=== PATIENT | female | born 1935 | race Caucasian/White ===

== ENCOUNTER 2019-04-11 06:37 | Observation (INO) | payer MEDICARE ==
[2019-04-11] MEDS ORDERED: ONDANSETRON 4 MG/2 ML VIAL IVP STA (07:14)
[2019-04-11] MEDS ORDERED: MORPHINE SULFATE 4 MG/ML SYRINGE IV STA (07:14)
--- NOTE | 2019-04-11 07:51 | ED ---
Abdominal Pain HPI - General Chief Complaint: Abdominal Pain Stated Complaint: abd pain Time Seen by Provider: 04/11/19 07:00 Source: patient Mode of arrival: ambulatory Limitations: no limitations - History of Present Illness Initial Comments: The patient is an 83-year-old female past medical history of hypertension and TIA who presents to the emergency room with reported abdominal pain. States it has been present since Wednesday morning. It is described as a epigastric pain which radiates straight through to her back. It has been waxing and waning. She took Tylenol at home with only mild improvement in her symptoms. She has associated nausea with dry heaving. Denies any fevers or chills. No history of similar. Denies ripping or tearing sensation. No unilateral numbness or weakness into her lower extremities. Denies any dysuria, hematuria or difficult voiding. Denies any diarrhea, constipation, melanotic stools or hematochezia. Last bowel movement was last night. Denies any abnormal vaginal bleeding or discharge. The patient arrives and is extremely hypertensive. States that she has taken her blood pressure medications and has been able to hold them down. Denies any chest pain or shortness of breath. There are no other alleviating, precipitating or modifying factors - Related Data Home Medications Medication Instructions Recorded Confirmed Atorvastatin [Lipitor] 40 mg PO DAILY 04/11/19 04/11/19 Clopidogrel [Plavix] 75 mg PO DAILY 04/11/19 04/11/19 Omeprazole [PriLOSEC] 20 mg PO DAILY 04/11/19 04/11/19 Previous Rx's Medication Instructions Recorded Hydrocodone/Acetaminophen [[place] 1 tab PO Q6HR PRN 3 Days #12 tab 04/12/19 5-325] Allergies Allergy/AdvReac Type Severity Reaction Status Date / Time No Known Allergies Allergy Verified 04/11/19 09:20 Review of Systems ROS Statement: Those systems with pertinent positive or pertinent negative responses have been documented in the HPI. ROS Other: All systems not noted in ROS Statement are negative. Past Medical History Past Medical History: CVA/TIA, Hyperlipidemia, Hypertension History of Any Multi-Drug Resistant Organisms: None Reported Past Surgical History: Hernia Repair Past Psychological History: No Psychological Hx Reported Smoking Status: Never smoker Past Alcohol Use History: None Reported Past Drug Use History: None Reported - Past Family History Father Family Medical History: No Reported History Additional Family Medical History / Comment(s): Father was healthy Mother Family Medical History: No Reported History Additional Family Medical History / Comment(s): Mother was healthy General Exam Limitations: no limitations General appearance: alert, in no apparent distress Head exam: Present: atraumatic, normocephalic, normal inspection Eye exam: Present: normal appearance, PERRL, EOMI. Absent: scleral icterus, conjunctival injection, periorbital swelling ENT exam: Present: normal exam, mucous membranes moist Neck exam: Present: normal inspection. Absent: tenderness, meningismus, lymphadenopathy Respiratory exam: Present: normal lung sounds bilaterally. Absent: respiratory distress, wheezes, rales, rhonchi, stridor Cardiovascular Exam: Present: regular rate, normal rhythm, normal heart sounds. Absent: systolic murmur, diastolic murmur, rubs, gallop, clicks GI/Abdominal exam: Present: soft, tenderness (epigastric), normal bowel sounds. Absent: distended, guarding, rebound, rigid Extremities exam: Present: normal inspection, full ROM, normal capillary refill. Absent: tenderness, pedal edema, joint swelling, calf tenderness Back exam: Present: normal inspection Neurological exam: Present: alert, oriented X3, CN II-XII intact Psychiatric exam: Present: normal affect, normal mood Skin exam: Present: warm, dry, intact, normal color. Absent: rash Course Vital Signs 04/11/19 04/11/19 04/11/19 07:00 07:30 08:30 Temperature 97.8 F Pulse Rate 80 84 89 Respiratory 18 20 16 Rate Blood Pressure 192/98 195/106 204/104 O2 Sat by Pulse 98 93 L 96 Oximetry 04/11/19 04/11/19 09:30 10:41 Temperature Pulse Rate 92 87 Respiratory 18 18 Rate Blood Pressure 199/109 176/104 O2 Sat by Pulse 94 L 99 Oximetry Medical Decision Making - Medical Decision Making Upon arrival the patient was placed into room 8. A thorough history and physical exam was performed. Patient does have 2+ pulses in all extremities. I did perform a bedside ultrasound which demonstrates only a small portion of aorta which measures 1.1 cm in diameter. Remainder of aorta is obscured by bowel gas. Peripheral IV is established. The patient's given 4 mg of morphine and 4 mg of Zofran. I did recommend completing laboratory studies. CT angiography of the patient's abdomen and pelvis was ordered. CBC shows a white blood for count of 17.5. Coags are normal. CMP shows a creatinine of 0.5. Glucose 130. Urinalysis shows 1+ ketones, 1+ glucose, small blood and [address] of the patient's abdomen and pelvis demonstrates acute cholecystitis with pericholecystic fluid, gallbladder wall edema and gb wall thickening. Cholelithiasis is also seen. Gallbladder ultrasound was then performed which demonstrates cholelithiasis with wall thickening and probable pericholecystic fluid. Common bile duct is 0.5. I called and discussed case with Dr. Pike. I also called and discussed the case with Dr. Mishra who accepted admission for the patient. She was made nothing by mouth. Antinausea and pain meds were ordered. The patient was transported in the floor in stable condition - Lab Data Result diagrams: 04/11/19 07:24 04/11/19 07:24 Lab Results 04/11/19 04/11/19 04/11/19 Range/Units 07:24 07:24 07:24 WBC 9.2 (3.8-10.6) k/uL RBC 5.54 H (3.80-5.40) m/uL Hgb 17.5 H (11.4-16.0) gm/dL Hct 51.9 H (34.0-46.0) % MCV 93.6 (80.0-100.0) fL MCH 31.6 (25.0-35.0) pg MCHC 33.8 (31.0-37.0) g/dL RDW 12.4 (11.5-15.5) % Plt Count 217 (150-450) k/uL Neutrophils % 83 % Lymphocytes % 9 % Monocytes % 6 % Eosinophils % 1 % Basophils % 0 % Neutrophils # 7.6 (1.3-7.7) k/uL Lymphocytes # 0.9 L (1.0-4.8) k/uL Monocytes # 0.5 (0-1.0) k/uL Eosinophils # 0.1 (0-0.7) k/uL Basophils # 0.0 (0-0.2) k/uL PT (9.0-12.0) sec INR (<1.2) APTT (22.0-30.0) sec Sodium 139 (137-145) mmol/L Potassium 4.0 (3.5-5.1) mmol/L Chloride 103 (98-107) mmol/L Carbon Dioxide 25 (22-30) mmol/L Anion Gap 11 mmol/L BUN 16 (7-17) mg/dL Creatinine 0.51 L (0.52-1.04) mg/dL Est GFR (CKD-EPI)AfAm >90 (>60 ml/min/1.73 sqM) Est GFR (CKD-EPI)NonAf >90 (>60 ml/min/1.73 sqM) Glucose 130 H (74-99) mg/dL Plasma Lactic Acid Jose 1.4 (0.7-2.0) mmol/L Calcium 10.3 H (8.4-10.2) mg/dL Total Bilirubin 1.2 (0.2-1.3) mg/dL AST 26 (14-36) U/L ALT 24 (9-52) U/L Alkaline Phosphatase 88 (38-126) U/L Total Protein 7.6 (6.3-8.2) g/dL Albumin 4.8 (3.5-5.0) g/dL Lipase 62 (23-300) U/L Urine Color Urine Appearance (Clear) Urine pH (5.0-8.0) Ur Specific [place] (1.001-1.035) Urine Protein (Negative) Urine Glucose (UA) (Negative) Urine Ketones (Negative) Urine Blood (Negative) Urine Nitrite (Negative) Urine Bilirubin (Negative) Urine Urobilinogen (<2.0) mg/dL Ur Leukocyte Esterase (Negative) Urine RBC (0-5) /hpf Urine WBC (0-5) /hpf Ur Squamous Epith Cells (0-4) /hpf 04/11/19 04/11/19 Range/Units 07:24 09:13 WBC (3.8-10.6) k/uL RBC (3.80-5.40) m/uL Hgb (11.4-16.0) gm/dL Hct (34.0-46.0) % MCV (80.0-100.0) fL MCH (25.0-35.0) pg MCHC (31.0-37.0) g/dL RDW (11.5-15.5) % Plt Count (150-450) k/uL Neutrophils % % Lymphocytes % % Monocytes % % Eosinophils % % Basophils % % Neutrophils # (1.3-7.7) k/uL Lymphocytes # (1.0-4.8) k/uL Monocytes # (0-1.0) k/uL Eosinophils # (0-0.7) k/uL Basophils # (0-0.2) k/uL PT 10.8 (9.0-12.0) sec INR 1.0 (<1.2) APTT 23.9 (22.0-30.0) sec Sodium (137-145) mmol/L Potassium (3.5-5.1) mmol/L Chloride (98-107) mmol/L Carbon Dioxide (22-30) mmol/L Anion Gap mmol/L BUN (7-17) mg/dL Creatinine (0.52-1.04) mg/dL Est GFR (CKD-EPI)AfAm (>60 ml/min/1.73 sqM) Est GFR (CKD-EPI)NonAf (>60 ml/min/1.73 sqM) Glucose (74-99) mg/dL Plasma Lactic Acid Jose (0.7-2.0) mmol/L Calcium (8.4-10.2) mg/dL Total Bilirubin (0.2-1.3) mg/dL AST (14-36) U/L ALT (9-52) U/L Alkaline Phosphatase (38-126) U/L Total Protein (6.3-8.2) g/dL Albumin (3.5-5.0) g/dL Lipase (23-300) U/L Urine Color Light Yellow Urine Appearance Clear (Clear) Urine pH 7.0 (5.0-8.0) Ur Specific [place] 1.036 H (1.001-1.035) Urine Protein Trace H (Negative) Urine Glucose (UA) 1+ H (Negative) Urine Ketones 1+ H (Negative) Urine Blood Small H (Negative) Urine Nitrite Negative (Negative) Urine Bilirubin Negative (Negative) Urine Urobilinogen <2.0 (<2.0) mg/dL Ur Leukocyte Esterase Negative (Negative) Urine RBC 21 H (0-5) /hpf Urine WBC 1 (0-5) /hpf Ur Squamous Epith Cells <1 (0-4) /hpf - EKG Data EKG Comments: EKG demonstrates normal sinus rhythm with a ventricular rate 77. ID interval 132. QRS 66. QTC of 450. No acute ST segment elevations or depressions concerning for ischemic changes Disposition Clinical Impression: Abdominal pain, Acute cholecystitis Disposition: ADMITTED IP TO THIS HOSP Condition: Stable Is patient prescribed a controlled substance at d/c from ED?: No Decision to Admit Reason: Admit from EC Decision Date: 04/11/19 Decision Time: 09:35
[2019-04-11 07:55] LABS: Partial Thromboplastin Time 23.9 sec (22.0-30.0); Prothrombin Time 10.8 sec (9.0-12.0)
[2019-04-11 07:56] LABS: ALT 24 U/L (9-52); AST 26 U/L (14-36); African American GFR (CKD) >90 (>60 ml/min/1.73 sqM); Albumin 4.8 g/dL (3.5-5.0); Alkaline Phosphatase 88 U/L (38-126); Anion Gap 11 mmol/L; Blood Urea Nitrogen 16 mg/dL (7-17); Calcium 10.3 mg/dL (8.4-10.2); Carbon Dioxide 25 mmol/L (22-30); Chloride 103 mmol/L (98-107); Glucose 130 mg/dL (74-99); Non-African American GFR(CKD) >90 (>60 ml/min/1.73 sqM); Sodium 139 mmol/L (137-145); Total Bilirubin 1.2 mg/dL (0.2-1.3); Total Protein 7.6 g/dL (6.3-8.2)
[2019-04-11 07:59] LABS: Basophils % (A) 0 %; Eosinophils # (A) 0.1 k/uL (0-0.7); Eosinophils % (A) 1 %; HCT 51.9 % (34.0-46.0); HGB 17.5 gm/dL (11.4-16.0); Lymphocytes # (A) 0.9 k/uL (1.0-4.8); Lymphocytes % (A) 9 %; MCH 31.6 pg (25.0-35.0); MCHC 33.8 g/dL (31.0-37.0); MCV 93.6 fL (80.0-100.0); Mean Platelet Volume 8.9; Monocytes # (A) 0.5 k/uL (0-1.0); Monocytes % (A) 6 %; Neutrophils # (A) 7.6 k/uL (1.3-7.7); Neutrophils % (A) 83 %; Platelet Count 217 k/uL (150-450); RBC 5.54 m/uL (3.80-5.40); RDW 12.4 % (11.5-15.5); WBC 9.2 k/uL (3.8-10.6)
--- NOTE | 2019-04-11 08:45 | CT ---
EXAMINATION TYPE: CT angio abdomen pelvis DATE OF EXAM: 04/11/2019 HISTORY: Rt flank pain, severe back pain since Wednesday CT DLP: 730.5mGycm Automated Exposure Control for Dose Reduction was Utilized. CONTRAST: CT scan of the abdomen and pelvis is performed without and with IV Contrast, patient injected with 10 0 mL of Isovue 370. COMPARISON: None FINDINGS: LUNG BASES: Increased anterior posterior diameter of the chest that may relate to emphysema or kyphos is. Minimal bibasilar atelectasis. Coronary arteries are not entirely visualized. At least mild coron sarbjit artery calcifications. LIVER/GB: There is gallbladder wall edema and gallbladder wall thickening with pericholecystic fluid. Cholelithiasis is also seen. Common bile duct measures 7 mm. Angiographic phase of the liver limited evaluation. There is hyperemia around the gallbladder fossa s econdary to the findings of acute cholecystitis. PANCREAS: No significant abnormality is seen. SPLEEN: No significant abnormality is seen. ADRENALS: No significant abnormality is seen. KIDNEYS: No significant abnormality is seen. BOWEL: Small hiatal hernia. Sigmoid diverticulosis without evidence of acute diverticulitis. Patulous fat filled inguinal canals. No dilated large or small bowel. LYMPH NODES: No greater than 1cm abdominal or pelvic lymph nodes are appreciated. OSSEOUS STRUCTURES: Diffuse osseous demineralization. Grade 1 anterolisthesis of L4 on L5 likely due to hypertrophic facet change. Moderate multilevel degenerative disc disease of the spine with mild le voscoliosis of the lumbar spine. VASCULATURE: Precontrast imaging demonstrates no evidence of intramural hematoma. Post contrast imagi ng demonstrates no evidence of aortic dissection in the abdominal aorta or its branches. No aneurysma l dilatation. Advanced calcific atheromatous changes seen of the abdominal aorta. Mild radial also na rrowing on the left. There is some ostial narrowing at the celiac access and superior mesenteric axis without appreciable hemodynamically significant stenosis. There is opacification of the visualized p roximal portions of the SMA and SAMRA as well as celiac axis and its branches. Renal arteries are paten t. IMPRESSION: 1. CT findings of acute cholecystitis. 2. No evidence of abdominal aortic dissection or aneurysm. Advanced atherosclerosis.
[2019-04-11] MEDS ORDERED: cefTRIAXone IN SWFI 1,000 MG/10 ML SYRINGE IVP STA (09:07)
[2019-04-11 09:44] LABS: Appearance,Urine Clear (Clear); Bilirubin,Urine Negative (Negative); Blood,Urine Small (Negative); Color,Urine Light Yellow; Glucose,Urine (UA) 1+ (Negative); Ketones,Urine 1+ (Negative); Leukocyte Esterase,Urine Negative (Negative); Nitrite,Urine Negative (Negative); Protein,Urine Trace (Negative); RBC,Urine 21 /hpf (0-5); Specific Gravity,Urine 1.036 (1.001-1.035); Squamous Epithelial Cell,Urine <1 /hpf (0-4); Urobilinogen,Urine <2.0 mg/dL (<2.0); WBC,Urine 1 /hpf (0-5)
[2019-04-11] MEDS ORDERED: NALOXONE 0.4 MG/ML 1 ML VIAL IV PRN (09:50)
[2019-04-11] MEDS ORDERED: MORPHINE SULFATE 4 MG/ML SYRINGE IV PRN (09:52)
[2019-04-11] MEDS ORDERED: ONDANSETRON 4 MG/2 ML VIAL IVP PRN (09:52)
[2019-04-11] MEDS: SODIUM CHLORIDE 0.9% 1,000 ML IV SCH (10:00)
--- NOTE | 2019-04-11 10:02 | US ---
EXAMINATION TYPE: US gallbladder DATE OF EXAM: 04/11/2019 COMPARISON: NONE CLINICAL HISTORY: abdominal pain. Abdominal pain, nausea and vomiting EXAM MEASUREMENTS: Liver Length: 13.6 cm Gallbladder Wall: 0.5 cm CBD: 0.5 cm Right Kidney: 9.5 x 4.6 x 3.8 cm Pancreas: Obscured by bowel gas Liver: best visualized intercostally and therefore limited in assessment. No obvious mass by ultras ound. Gallbladder: multiple stones, thickened GB wall, possible small amount of pericholecystic fluid Evidence for sonographic Logan's sign: yes CBD: appears wnl Right Kidney: minimally dilated collecting system IMPRESSION: 1. Gallbladder is grossly abnormal. Cholelithiasis with wall thickening and probable pericholecystic fluid correlate for cholecystitis. 2. There is mild right hydronephrosis.
--- NOTE | 2019-04-11 10:31 | P.GSHP ---
History of Present Illness H&P Date: 04/11/19 CHIEF COMPLAINT: Abdominal pain HISTORY OF PRESENT ILLNESS: 83-year-old female who presented to the emergency room with a chief complaint of abdominal pain. Patient reports the pain is in the right upper quadrant and radiates to her back. She states this pain has been present for approximately 2 days. She reports nausea. Denies diarrhea or frustration. Denies fever or chills. PAST MEDICAL HISTORY: See list. PAST SURGICAL HISTORY: See list. SOCIAL HISTORY: No illicit drug use. REVIEW OF SYSTEMS: CONSTITUTIONAL: Denies fever or chills. HEENT: Denies blurred vision, vision changes, or eye pain. Denies hemoptysis CARDIOVASCULAR: Denies chest pain or pressure. RESPIRATORY: No shortness of breath. GASTROINTESTINAL: Refer to [facility] for pertinent findings HEMATOLOGIC: Denies bleeding disorders. GENITOURINARY: Denies any blood in urine. SKIN: Denies pruitis. Denies rash. PHYSICAL EXAM: VITAL SIGNS: Reviewed. GENERAL: Well-developed in no acute distress. HEENT: No sclera icterus. Extraocular movements grossly intact. Moist buccal mucosa. Head is atraumatic, normocephalic. ABDOMEN: Soft. Nondistended. Tenderness upon palpation of right upper quadrant. No peritoneal signs. NEUROLOGIC: Alert and oriented. Cranial nerves II through XII grossly intact. LABORATORY DATA: WAC 9.2. Hemoglobin 17.5. Platelet count 217. Lactic acid 1.4. Bilirubin 1.2. AST 26. ALT 24. Lipase 62. IMAGING: Abdominal ultrasound: Gallbladder is grossly abnormal. Cholelithiasis with wall thickening and probable pericholecystic fluid. Correlate for cholecystitis. Mild right hydronephrosis. ASSESSMENT: 1. Abdominal pain 2. Cholelithiasis 3. Acute cholecystitis PLAN: Nothing by mouth. Continue IV fluids. Patient to undergo laparoscopic cholecystectomy today with Dr. Mishra. Nurse practitioner note has been reviewed by physician. Signing provider agrees with the documented findings, assessment, and plan of care. Past Medical History Past Medical History: CVA/TIA, Hyperlipidemia, Hypertension History of Any Multi-Drug Resistant Organisms: None Reported Past Surgical History: Hernia Repair Past Psychological History: No Psychological Hx Reported Smoking Status: Never smoker Past Alcohol Use History: None Reported Past Drug Use History: None Reported Medications and Allergies Home Medications Medication Instructions Recorded Confirmed Type Atorvastatin [Lipitor] 40 mg PO DAILY 04/11/19 04/11/19 History Clopidogrel [Plavix] 75 mg PO DAILY 04/11/19 04/11/19 History Omeprazole [PriLOSEC] 20 mg PO DAILY 04/11/19 04/11/19 History Allergies Allergy/AdvReac Type Severity Reaction Status Date / Time No Known Allergies Allergy Verified 04/11/19 09:20 Surgical - Exam Vital Signs Temp Pulse Resp BP Pulse Ox 97.8 F 80 18 192/98 98 04/11/19 07:00 04/11/19 07:00 04/11/19 07:00 04/11/19 07:00 04/11/19 07:00 Results - Labs 04/11/19 07:24 04/11/19 07:24 Abnormal Lab Results - Last 24 Hours (Table) 04/11/19 04/11/19 04/11/19 Range/Units 07:24 07:24 09:13 RBC 5.54 H (3.80-5.40) m/uL Hgb 17.5 H (11.4-16.0) gm/dL Hct 51.9 H (34.0-46.0) % Lymphocytes # 0.9 L (1.0-4.8) k/uL Creatinine 0.51 L (0.52-1.04) mg/dL Glucose 130 H (74-99) mg/dL Calcium 10.3 H (8.4-10.2) mg/dL Ur Specific [place] 1.036 H (1.001-1.035) Urine Protein Trace H (Negative) Urine Glucose (UA) 1+ H (Negative) Urine Ketones 1+ H (Negative) Urine Blood Small H (Negative) Urine RBC 21 H (0-5) /hpf Diabetes panel 04/11/19 Range/Units 07:24 Sodium 139 (137-145) mmol/L Potassium 4.0 (3.5-5.1) mmol/L Chloride 103 (98-107) mmol/L Carbon Dioxide 25 (22-30) mmol/L BUN 16 (7-17) mg/dL Creatinine 0.51 L (0.52-1.04) mg/dL Glucose 130 H (74-99) mg/dL Calcium 10.3 H (8.4-10.2) mg/dL AST 26 (14-36) U/L ALT 24 (9-52) U/L Alkaline Phosphatase 88 (38-126) U/L Total Protein 7.6 (6.3-8.2) g/dL Albumin 4.8 (3.5-5.0) g/dL Calcium panel 04/11/19 Range/Units 07:24 Calcium 10.3 H (8.4-10.2) mg/dL Albumin 4.8 (3.5-5.0) g/dL Pituitary panel 04/11/19 Range/Units 07:24 Sodium 139 (137-145) mmol/L Potassium 4.0 (3.5-5.1) mmol/L Chloride 103 (98-107) mmol/L Carbon Dioxide 25 (22-30) mmol/L BUN 16 (7-17) mg/dL Creatinine 0.51 L (0.52-1.04) mg/dL Glucose 130 H (74-99) mg/dL Calcium 10.3 H (8.4-10.2) mg/dL Adrenal panel 04/11/19 Range/Units 07:24 Sodium 139 (137-145) mmol/L Potassium 4.0 (3.5-5.1) mmol/L Chloride 103 (98-107) mmol/L Carbon Dioxide 25 (22-30) mmol/L BUN 16 (7-17) mg/dL Creatinine 0.51 L (0.52-1.04) mg/dL Glucose 130 H (74-99) mg/dL Calcium 10.3 H (8.4-10.2) mg/dL Total Bilirubin 1.2 (0.2-1.3) mg/dL AST 26 (14-36) U/L ALT 24 (9-52) U/L Alkaline Phosphatase 88 (38-126) U/L Total Protein 7.6 (6.3-8.2) g/dL Albumin 4.8 (3.5-5.0) g/dL
[2019-04-11] MEDS ORDERED: PNEUMOCOCCAL VACC-PNEUMOVAX 23 25 MCG/0.5 ML VIAL IM ONE (11:00)
[2019-04-11] MEDS ORDERED: IV FLUID CONTINUATION 1,000 ML IV ONE (11:03)
[2019-04-11] MEDS ORDERED: PHENYLEPHRINE-0.9% NACL SYG 1 MG/10 ML SYRINGE ONE (12:00)
[2019-04-11] MEDS ORDERED: SUCCINYLCHOLINE CHLORIDE 100 MG/5 ML SYR IV ONE (12:00)
[2019-04-11] MEDS ORDERED: fentaNYL (PF) 50 MCG/ML 2 ML AMP ONE (12:00)
[2019-04-11] MEDS ORDERED: PROPOFOL 10 MG/ML 20 ML VIAL IV ONE (12:00)
[2019-04-11] MEDS ORDERED: ceFAZolin 1,000 MG VIAL IVPB ONE (12:15)
[2019-04-11] MEDS ORDERED: BUPIVACAIN-EPI 0.25%-1:200,000 30 ML VIAL SQ ONE (12:23)
[2019-04-11] MEDS ORDERED: HYDROmorphone 1 MG/ML 1 ML SYRINGE IM PRN (12:56)
--- NOTE | 2019-04-11 12:56 | P.OP ---
Date of Procedure: 04/11/19 Preoperative Diagnosis: Acute cholecystitis Postoperative Diagnosis: Acute cholecystitis with patchy necrosis Procedure(s) Performed: Laparoscopic cholecystectomy Anesthesia: JENNIFER Surgeon: Arnol Mishra Estimated Blood Loss (ml): 10 Pathology: other (All bladder all bladder) Description of Procedure: The patient was placed on the operating table. The patient received a general endotracheal tube anesthesia. The patients abdomen was prepped and draped in the usual sterile fashion. Through an infraumbilical stab incision, the fascia of the anterior abdominal wall was grasped with a pair of Kochers and then the Veress needle was placed in the peritoneal cavity. Position of the Veress needle was confirmed with positive drop test. The abdomen was then insufflated. After adequate insufflation, the 10 mm trocar was placed in the peritoneal cavity. Following this the laparoscope was placed in the perit ward cavity. The patient was placed in the head-up, right side up position and then a 5 mm trocar was placed in the right lateral and right subcostal position under direct visualization. A 8 mm trocar was placed in the epigastric position. The gallbladder was grasped in the fundus and infundibulum. Traction on the gallbladder was placed in the lateral and the cephalad positions. The triangle of Calot was visualized.. The cystic duct was bluntly dissected until the union of the cystic duct and common bile duct was seen. A critical view of safety was achieved. The cystic duct was then divided and sealed with the Harmonic scissors. A PDS Endoloop was then placed throughout the cystic duct stump. The cystic artery divided and sealed with the Harmonic scissors. The gallbladder was then removed from the liver bed using Harmonic scissors. The gallbladder was then extracted through the epigastric port site. Operative field was checked for any bleeding spots and Harmonic scissors was used to coagulate the liver bed. The abdomen was irrigated. The trocars were removed. The skin was closed using interrupted 3-0 Vicryl suture. Dermabond dressing were applied. The patient tolerated the procedure well.
[2019-04-11] MEDS ORDERED: METOPROLOL TARTRATE 5 MG/5 ML VIAL IVP ONE ×2 (13:35→14:57)
[2019-04-11] MEDS ORDERED: HYDROmorphone 0.5 MG/0.5 ML SYRINGE IVP ONE ×4 (13:40→15:03)
[2019-04-11] MEDS ORDERED: hydrALAZINE HCL 20 MG/ML 1 ML VIAL IVP ONE (13:52)
[2019-04-11] MEDS ORDERED: ENALAPRILAT 1.25 MG/ML 1 ML VIAL IVP ONE (14:57)
[2019-04-11] MEDS ORDERED: HYDROmorphone 1 MG/ML 1 ML SYRINGE IVP PRN (19:58)
--- NOTE | 2019-04-12 00:07 | P.CONS ---
History of Present Illness - Reason for Consult Consult date: 04/11/19 Medical management Requesting physician: Arnol Mishra - Chief Complaint Abdominal pain - History of Present Illness Consultation: This is a pleasant 83-year-old patient of Dr. Luma Olmstead. Chronic stable medical conditions include hyperlipidemia, hypertension, Alonzo arthritis. For about a week patient been having upper abdominal pain. Slight nausea. No fever no chills. Not really exerted to food. Progressively getting worse. Decided to come to the ER. Ultrasound did show abnormal gallbladder with thickened wall and gallstones. Computed tomography scan of the abdomen was done in the ER. Patient was taken down for laparoscopic cholecystectomy. Postprocedure patient has some abdominal discomfort. No nausea vomiting. Review of systems: GEN.: Tired EYES: None HEENT: Decreased hearing NECK: None RESPIRATORY: None CARDIOVASCULAR: None GASTROINTESTINAL: As above GENITOURINARY: None MUSCULOSKELETAL: Joint pain LYMPHATICS: None HEMATOLOGICAL: None PSYCHIATRY: None NEUROLOGICAL: None Social history: . No smoking. No alcohol. Family history: Reviewed, noncontributory to presentation Physical examination: VITAL SIGNS: 37.5, 74, 18, 152/76, 94% room air GENERAL: BMI 20.2, laying in bed, comfortable. EYES: Pupils equal. Conjunctiva normal. HEENT: External appearance of nose and ears normal, oral cavity grossly normal. NECK: JVD not raised; masses not palpable. HEART: First and second heart sounds are normal; no edema. LUNGS: Respiratory rate normal; clear to auscultation. ABDOMEN: Soft, some tenderness, no guarding or rigidity rigidity, liver spleen not palpable, no masses palpable. PSYCH: Alert and oriented x3; mood and affect normal. NEUROLOGICAL: Cranial nerves grossly intact; no facial asymmetry, power and sensation grossly intact. LYMPHATICS: No lymph nodes palpable in the axilla and neck MUSCULOSKELETAL: Evidence of OA especially in the hands INVESTIGATIONS, reviewed in the clinical context: White count 9.2 hemoglobin 7.5 potassium 4.0 crit 0.51 Gallbladder ultrasound showing evidence of cholecystitis, gallstones, abnormal gallbladder CT of the abdomen-evidence of cholecystitis Assessment: -Acute cholecystitis with choledocholithiasis, followed by laparoscopic cholecystectomy -Primary osteoarthritis -GERD -Hyperlipidemia Plan: Home medications resumed. Getting IV fluids. We will add Lovenox for DVT prophylaxis. Care was discussed with the patient.. Patient did receive 1 dose of ceftriaxone in the ER. Thank you Dr. Mishra Past Medical History Past Medical History: CVA/TIA, Hyperlipidemia, Hypertension Additional Past Medical History / Comment(s): TIA History of Any Multi-Drug Resistant Organisms: None Reported Past Surgical History: Hernia Repair Additional Past Surgical History / Comment(s): Julian fundoplication Past Anesthesia/Blood Transfusion Reactions: No Reported Reaction Past Psychological History: No Psychological Hx Reported Smoking Status: Never smoker Past Alcohol Use History: None Reported Past Drug Use History: None Reported - Past Family History Father Family Medical History: No Reported History Additional Family Medical History / Comment(s): Father was healthy Mother Family Medical History: No Reported History Additional Family Medical History / Comment(s): Mother was healthy Medications and Allergies Home Medications Medication Instructions Recorded Confirmed Type Atorvastatin [Lipitor] 40 mg PO DAILY 04/11/19 04/11/19 History Clopidogrel [Plavix] 75 mg PO DAILY 04/11/19 04/11/19 History Omeprazole [PriLOSEC] 20 mg PO DAILY 04/11/19 04/11/19 History Allergies Allergy/AdvReac Type Severity Reaction Status Date / Time No Known Allergies Allergy Verified 04/11/19 09:20 Physical Exam Vitals: Vital Signs Temp Pulse Pulse Pulse Resp BP BP 04/11/19 18:20 87 110/63 04/11/19 17:20 92 104/60 04/11/19 16:50 92 104/60 04/11/19 16:20 72 105/56 04/11/19 16:05 77 93/55 04/11/19 15:50 77 102/57 04/11/19 15:35 97.5 F L 74 18 152/76 04/11/19 15:04 78 16 172/84 04/11/19 14:59 77 14 04/11/19 14:30 77 16 04/11/19 14:00 71 16 04/11/19 13:45 68 16 04/11/19 13:30 64 16 04/11/19 13:22 69 16 04/11/19 13:07 97.9 F 70 20 04/11/19 11:10 98.7 F 83 16 163/105 04/11/19 10:41 87 18 176/104 04/11/19 09:30 92 18 199/109 04/11/19 08:30 89 16 204/104 04/11/19 07:30 84 20 195/106 04/11/19 07:00 97.8 F 80 18 192/98 BP BP BP Pulse Ox 04/11/19 18:20 95 04/11/19 17:20 94 L 04/11/19 16:50 94 L 04/11/19 16:20 93 L 04/11/19 16:05 92 L 04/11/19 15:50 92 L 04/11/19 15:35 94 L 04/11/19 15:04 93 L 04/11/19 14:59 203/89 92 L 04/11/19 14:30 174/99 95 04/11/19 14:00 218/111 95 04/11/19 13:45 205/98 100 04/11/19 13:30 203/96 99 04/11/19 13:22 208/93 95 04/11/19 13:07 209/99 97 04/11/19 11:10 97 04/11/19 10:41 99 04/11/19 09:30 94 L 04/11/19 08:30 96 04/11/19 07:30 93 L 04/11/19 07:00 98 Intake and Output 04/11/19 04/11/19 04/12/19 14:59 22:59 06:59 Intake Total 800 Output Total 15 Balance 785 Intake: IV 800 Output: Estimated Blood Loss 15 Other: Voiding Method Toilet # Voids 1 Weight 46.811 kg Results CBC & Chem 7: 04/11/19 07:24 04/11/19 07:24 Labs: Abnormal Lab Results - Last 24 Hours (Table) 04/11/19 04/11/19 04/11/19 Range/Units 07:24 07:24 09:13 RBC 5.54 H (3.80-5.40) m/uL Hgb 17.5 H (11.4-16.0) gm/dL Hct 51.9 H (34.0-46.0) % Lymphocytes # 0.9 L (1.0-4.8) k/uL Creatinine 0.51 L (0.52-1.04) mg/dL Glucose 130 H (74-99) mg/dL Calcium 10.3 H (8.4-10.2) mg/dL Ur Specific [place] 1.036 H (1.001-1.035) Urine Protein Trace H (Negative) Urine Glucose (UA) 1+ H (Negative) Urine Ketones 1+ H (Negative) Urine Blood Small H (Negative) Urine RBC 21 H (0-5) /hpf
[2019-04-12] MEDS ORDERED: ENOXAPARIN 40 MG/0.4 ML SYRINGE SQ SCH (00:09)
[2019-04-12] MEDS: SODIUM CHLORIDE 0.9% 1,000 ML IV SCH (00:35)
[2019-04-12] MEDS ORDERED: PANTOPRAZOLE 40 MG TABLET PO SCH (07:30)
[2019-04-12 07:50] VITALS: BP 146/63; PULSE 85; RESP 19; TEMP 98.2
[2019-04-12] MEDS ORDERED: CLOPIDOGREL 75 MG TAB PO SCH (09:00)
[2019-04-12] MEDS ORDERED: ATORVASTATIN 40 MG TAB PO SCH (09:00)
--- NOTE | 2019-04-12 13:51 | P.DS ---
Providers Date of admission: 04/11/19 09:51 Expected date of discharge: 04/12/19 Attending physician: Arnol Mishra Consults: 04/11/19 09:51 Consult Physician Urgent Consulting Provider: Shakeel Pike Consult Reason/Comments: medical management Do you want consulting provider notified?: Yes Primary care physician: Luma Olmstead [facility] Course: 83-year-old female who presented to the emergency room with a chief complaint of abdominal pain. Patient reports the pain is in the right upper quadrant and radiates to her back. She states this pain has been present for approximately 2 days. She reports nausea. Denies diarrhea or frustration. Denies fever or chills. Workup in the emergency room revealed cholelithiasis with acute cholecystitis. Patient underwent laparoscopic cholecystectomy with Dr. Mishra. She is doing well postoperatively without any immediate complications. Pain is controlled on oral medications. Tolerating diet without nausea or vomiting. Vital signs are stable. She is stable for discharge home today. Please see EMR for further hospital course details. Discharge diagnosis: 1. Abdominal pain 2. Cholelithiasis 3. Acute cholecystitis Nurse practitioner note has been reviewed by physician. Signing provider agrees with the documented findings, assessment, and plan of care. Patient Condition at Discharge: Stable Plan - Discharge Summary Discharge Rx Participant: No New Discharge Prescriptions: New Hydrocodone/Acetaminophen [[place] 5-325] 1 tab PO Q6HR PRN 3 Days #12 tab PRN Reason: Pain No Action Omeprazole [PriLOSEC] 20 mg PO DAILY Clopidogrel [Plavix] 75 mg PO DAILY Atorvastatin [Lipitor] 40 mg PO DAILY Discharge Medication List Atorvastatin [Lipitor] 40 mg PO DAILY 04/11/19 [History] Clopidogrel [Plavix] 75 mg PO DAILY 04/11/19 [History] Omeprazole [PriLOSEC] 20 mg PO DAILY 04/11/19 [History] Hydrocodone/Acetaminophen [[place] 5-325] 1 tab PO Q6HR PRN 3 Days #12 tab 04/12/19 [Rx] Follow up Appointment(s)/Referral(s): Luma Olmstead DO [Primary Care Provider] - 1-2 days Arnol Mishra MD [STAFF PHYSICIAN] - 1 Week Patient Instructions/Handouts: Laparoscopic Cholecystectomy (DC) Activity/Diet/Wound Care/Special Instructions: No driving while taking [place] No lifting over 10 pounds You may shower. No soaking or tub baths Very light activity until you are reevaluated at your follow up appointment with your surgeon
--- NOTE | 2019-04-16 23:13 | P.PN ---
Progress Note - Text Progress Note Date: 04/12/19 - Chief Complaint Abdominal pain Interval history: This is a pleasant 83-year-old patient of Dr. Luma Olmstead. Chronic stable medical conditions include hyperlipidemia, hypertension, Alonzo arthritis. For about a week patient been having upper abdominal pain. Slight nausea. No fever no chills. Not really exerted to food. Progressively getting worse. Decided to come to the ER. Ultrasound did show abnormal gallbladder with thickened wall and gallstones. Computed tomography scan of the abdomen was done in the ER. Patient was taken down for laparoscopic cholecystectomy. Postprocedure patient has some abdominal discomfort. No nausea vomiting. Today-feeling better. Minimal pain. Did tolerate some diet. That was advanced. No nausea vomiting. Review of systems: Was done for constitutional, cardiovascular, GI, pulmonary. relevant finding as above Current medications reviewed in today's electronic records Physical examination: VITAL SIGNS: 98.2, 85, 18, 146/63, 94% room air GENERAL: Sitting up,, comfortable. EYES: Pupils equal. Conjunctiva normal. HEENT: External appearance of nose and ears normal, oral cavity grossly normal. NECK: JVD not raised; masses not palpable. HEART: First and second heart sounds are normal; no edema. LUNGS: Respiratory rate normal; clear to auscultation. ABDOMEN: Soft, some tenderness, no guarding or rigidity rigidity, liver spleen not palpable, no masses palpable. PSYCH: Alert and oriented x3; mood and affect normal. MUSCULOSKELETAL: Evidence of OA especially in the hands INVESTIGATIONS, reviewed in the clinical context: Labs from today Previous testing White count 9.2 hemoglobin 7.5 potassium 4.0 crit 0.51 Gallbladder ultrasound showing evidence of cholecystitis, gallstones, abnormal gallbladder CT of the abdomen-evidence of cholecystitis Assessment: -Acute cholecystitis with choledocholithiasis, followed by laparoscopic cholecystectomy -Primary osteoarthritis -GERD -Hyperlipidemia Plan: Stable. Continue current medication treatment plan. If discharge follow with the PCP. Care was discussed with the patient. Thank you Dr. Mishra
== END 2019-04-12 13:43 ==
LOC: EC 06:37 → 1SOBS 09:51
PROVIDERS: ADMIT Surgery; ATTEND Surgery
DX: K80.62 Calculus of gallbladder and bile duct with acute cholecystitis without obstruction (principal); E78.5 Hyperlipidemia, unspecified; I10 Essential (primary) hypertension; M19.90 Unspecified osteoarthritis, unspecified site; K21.9 Gastro-esophageal reflux disease without esophagitis; M19.042 Primary osteoarthritis, left hand; M19.041 Primary osteoarthritis, right hand; Z86.73 Personal history of transient ischemic attack (TIA), and cerebral infarction without residual deficits; Z79.899 Other long term (current) drug therapy; Z79.02 Long term (current) use of antithrombotics/antiplatelets; Z98.890 Other specified postprocedural states
CPT/HCPCS: 47562; 96374; 96375; 99285; 36415; 93005; 88304; 80053; 83605; 83690; 85025; 85610; 85730; 81001; 87040; 76705; 74174; G0378 ×2; J2270; J0360; J2405; J0690; J1650; J0696; J3010; J1170 ×3; J2370; J0330; J2704; Q9967

== ENCOUNTER 2019-04-17 07:43 | Emergency (ER) | payer MEDICARE ==
[2019-04-17 07:49] VITALS: BP 191/79; PULSE 66; RESP 19; TEMP 98.1
--- NOTE | 2019-04-17 08:03 | ED ---
General Adult HPI - General Chief complaint: Fall Stated complaint: fall Time Seen by Provider: 04/17/19 07:45 Source: patient, family, RN notes reviewed, old records reviewed Mode of arrival: ambulatory Limitations: physical limitation - History of Present Illness Initial comments: This is an 83-year-old female who presents emergency Department complaining of having fallen last night according to 11. Patient states she has no complaints today she just wants her abdomen checked out because she had surgery on Wednesday for a gallbladder. Patient states she did fall and slightly bumped her head she did not lose consciousness she does not have a headache and she states at no time was she days. Patient states her scalp does not even hurt today. Recent denies any neck pain patient denies numbness weakness. Patient denies any chest pain or back pain. Patient denies any extremity pain. Patient denies any new abdominal pain. Patient denies any vomiting or diarrhea. Patient states she fell because she tripped on her pajamas. At no time was lightheaded or dizzy - Related Data Home Medications Medication Instructions Recorded Confirmed Atorvastatin [Lipitor] 40 mg PO DAILY 04/11/19 04/11/19 Clopidogrel [Plavix] 75 mg PO DAILY 04/11/19 04/11/19 Omeprazole [PriLOSEC] 20 mg PO DAILY 04/11/19 04/11/19 Previous Rx's Medication Instructions Recorded Hydrocodone/Acetaminophen [[place] 1 tab PO Q6HR PRN 3 Days #12 tab 04/12/19 5-325] Allergies Allergy/AdvReac Type Severity Reaction Status Date / Time No Known Allergies Allergy Verified 04/11/19 09:20 Review of Systems ROS Statement: Those systems with pertinent positive or pertinent negative responses have been documented in the HPI. ROS Other: All systems not noted in ROS Statement are negative. Past Medical History Past Medical History: CVA/TIA, Hyperlipidemia, Hypertension Additional Past Medical History / Comment(s): TIA History of Any Multi-Drug Resistant Organisms: None Reported Past Surgical History: Hernia Repair Additional Past Surgical History / Comment(s): Julian fundoplication Past Anesthesia/Blood Transfusion Reactions: No Reported Reaction Past Psychological History: No Psychological Hx Reported Smoking Status: Never smoker Past Alcohol Use History: None Reported Past Drug Use History: None Reported - Past Family History Father Family Medical History: No Reported History Additional Family Medical History / Comment(s): Father was healthy Mother Family Medical History: No Reported History Additional Family Medical History / Comment(s): Mother was healthy General Exam - General Exam Comments Initial Comments: GENERAL: Patient is well-developed and well-nourished. Patient is nontoxic and well- hydrated and is in no acute distress. I can find no area of tenderness on the scalp or any signs of trauma on the scalp. ENT: Neck is soft and supple. No significant lymphadenopathy is noted. Oropharynx is clear. Moist mucous membranes. Neck has full range of motion without eliciting any pain. EYES: The sclera were anicteric and conjunctiva were pink and moist. Extraocular movements were intact and pupils were equal round and reactive to light. Eyelids were unremarkable. PULMONARY: Unlabored respirations. Good breath sounds bilaterally. No audible rales rhonchi or wheezing was noted. CARDIOVASCULAR: There is a regular rate and rhythm without any murmurs gallops or rubs. ABDOMEN: Soft and nontender with normal bowel sounds. No palpable organomegaly was noted. There is no palpable pulsatile mass. SKIN: Skin is clear with no lesions or rashes and otherwise unremarkable. NEUROLOGIC: Patient is alert and oriented x3. Cranial nerves II through XII are grossly intact. Motor and sensory are also intact. Normal speech, volume and content. Symmetrical smile. MUSCULOSKELETAL: Normal extremities with adequate strength and full range of motion. No lower extremity swelling or edema. No calf tenderness. LYMPHATICS: No significant lymphadenopathy is noted PSYCHIATRIC: Normal psychiatric evaluation. Limitations: physical limitation Course Vital Signs 04/17/19 07:46 Temperature 98.1 F Pulse Rate 66 Respiratory 19 Rate Blood Pressure 191/79 O2 Sat by Pulse 97 Oximetry Medical Decision Making - Medical Decision Making I indicated the patient I was considering CAT scan of the head because she was on Plavix but she stated she did not want one in that she was fine going home as long as I thought her abdomen was okay. Disposition Clinical Impression: Fall Disposition: HOME SELF-CARE Condition: Good Instructions (If sedation given, give patient instructions): Fall Prevention for Older Adults (ED) Is patient prescribed a controlled substance at d/c from ED?: No Referrals: Luma Olmstead DO [Primary Care Provider] - 1-2 days Time of Disposition: 08:03
== END 2019-04-17 08:15 | disposition home or self-care (01) ==
LOC: EC 07:43
DX: Z04.3 Encounter for examination and observation following other accident (principal); E78.5 Hyperlipidemia, unspecified; Z86.73 Personal history of transient ischemic attack (TIA), and cerebral infarction without residual deficits; Z98.890 Other specified postprocedural states; Z79.02 Long term (current) use of antithrombotics/antiplatelets; Z79.899 Other long term (current) drug therapy
CPT/HCPCS: 99283

== ENCOUNTER 2022-01-06 07:44 | Observation (INO) | payer MEDICARE ==
[2022-01-06] MEDS ORDERED: KETOROLAC 15 MG/ML 1 ML VIAL IVP STA (08:16)
[2022-01-06 08:48] LABS: Basophils % (A) 0 %; Eosinophils # (A) 0.1 k/uL (0-0.7); Eosinophils % (A) 2 %; HCT 45.3 % (34.0-46.0); HGB 14.9 gm/dL (11.4-16.0); Lymphocytes # (A) 0.8 k/uL (1.0-4.8); Lymphocytes % (A) 12 %; MCH 31.2 pg (25.0-35.0); MCHC 32.8 g/dL (31.0-37.0); Mean Platelet Volume 8.4; Monocytes # (A) 0.5 k/uL (0-1.0); Monocytes % (A) 7 %; Neutrophils # (A) 5.4 k/uL (1.3-7.7); Neutrophils % (A) 78 %; Platelet Count 203 k/uL (150-450); RBC 4.77 m/uL (3.80-5.40); RDW 12.6 % (11.5-15.5); WBC 6.9 k/uL (3.8-10.6)
--- NOTE | 2022-01-06 08:51 | ED ---
Chest Pain HPI - General Chief Complaint: Chest Pain Stated Complaint: Chest Pain,Back Pain Time Seen by Provider: 01/06/22 07:59 Source: patient, RN notes reviewed Mode of arrival: ambulatory Limitations: no limitations - History of Present Illness Initial Comments: This a 86-year-old female presents emergency Department chief complaint chest pain, back pain. Patient states been having back problems for Lenora weeks in which she had low back pain but states she now developed upper back pain, some chest pain. Patient states his girlfriend pain just been exhibiting. She does have history of hypertension no hyperlipidemia diabetes no prior cardiac issues. Patient states she does have pain with movement of her back. Denies any bowel, bladder incontinence or retention or saddle anesthesia. Patient denies any. Chills no cough or cold-like symptoms. Patient has no urinary symptoms. - Related Data Home Medications Medication Instructions Recorded Confirmed Atorvastatin [Lipitor] 40 mg PO DAILY 04/11/19 04/11/19 Clopidogrel [Plavix] 75 mg PO DAILY 04/11/19 04/11/19 Omeprazole [PriLOSEC] 20 mg PO DAILY 04/11/19 04/11/19 Previous Rx's Medication Instructions Recorded Hydrocodone/Acetaminophen [[place] 1 tab PO Q6HR PRN 3 Days #12 tab 04/12/19 5-325] Allergies Allergy/AdvReac Type Severity Reaction Status Date / Time No Known Allergies Allergy Verified 01/06/22 07:58 Review of Systems ROS Statement: Those systems with pertinent positive or pertinent negative responses have been documented in the HPI. ROS Other: All systems not noted in ROS Statement are negative. EKG Findings - EKG Comments: EKG Findings:: EKG performed at 18:03 sinus rhythm with rate of 75 [place] 200 QRS 59 QT/QTC 362/[address] elevation or depression noted Past Medical History Past Medical History: CVA/TIA, Hyperlipidemia, Hypertension Additional Past Medical History / Comment(s): TIA History of Any Multi-Drug Resistant Organisms: None Reported Past Surgical History: Hernia Repair Additional Past Surgical History / Comment(s): Julian fundoplication Past Anesthesia/Blood Transfusion Reactions: No Reported Reaction Past Psychological History: No Psychological Hx Reported Smoking Status: Never smoker Past Alcohol Use History: None Reported Past Drug Use History: None Reported - Past Family History Father Family Medical History: No Reported History Additional Family Medical History / Comment(s): Father was healthy Mother Family Medical History: No Reported History Additional Family Medical History / Comment(s): Mother was healthy General Exam Limitations: no limitations General appearance: alert, in no apparent distress Head exam: Present: atraumatic, normocephalic, normal inspection Eye exam: Present: normal appearance, PERRL, EOMI. Absent: scleral icterus, conjunctival injection, periorbital swelling ENT exam: Present: normal exam, normal oropharynx, mucous membranes moist Neck exam: Present: normal inspection, full ROM. Absent: tenderness, meningismus, lymphadenopathy Respiratory exam: Present: normal lung sounds bilaterally. Absent: respiratory distress, wheezes, rales, rhonchi, stridor Cardiovascular Exam: Present: regular rate, normal rhythm, normal heart sounds. Absent: systolic murmur, diastolic murmur, rubs, gallop, clicks GI/Abdominal exam: Present: soft, normal bowel sounds. Absent: distended, tenderness, guarding, rebound, rigid Extremities exam: Present: normal inspection, full ROM, normal capillary refill. Absent: tenderness, pedal edema, joint swelling, calf tenderness Back exam: Present: full ROM, tenderness, paraspinal tenderness. Absent: vertebral tenderness Neurological exam: Present: reflexes normal. Absent: motor sensory deficit Course Vital Signs 01/06/22 07:56 Temperature 97.5 F L Pulse Rate 74 Respiratory 20 Rate Blood Pressure 132/78 O2 Sat by Pulse 98 Oximetry Chest [facility] 86-year-[facility] female presented for chest and back pain. Patient has been present for a couple weeks was recently developed chest pain. Patient does have a history of hypertension. Initial workup is negative patient's back pain seems related to underlying degenerative changes, scoliosis. Patient be admitted for ACS rule out given current complaints of chest pain, age and risk factors. Disposition Clinical Impression: Chest pain Disposition: ADMITTED IP TO THIS [facility] Condition: Fair Referrals: Luma Olmstead DO [Primary Care Provider] - 1-2 days Time of Disposition: 10:16
--- NOTE | 2022-01-06 08:56 | XR ---
EXAMINATION TYPE: XR chest 2V DATE OF EXAM: 01/06/2022 COMPARISON: NONE HISTORY: Chest pain. TECHNIQUE: Frontal and lateral views of the chest are obtained. FINDINGS: There is no suspicious focal air space opacity, pleural effusion, or pneumothorax seen. T he cardiac silhouette size is within normal limits with atherosclerotic change in the aorta. Osseous structures are demineralized. Underlying scoliosis is present. High riding humeral heads bilaterally more prominent on the right consistent with chronic rotator cuff tears are noted. IMPRESSION: No acute cardiopulmonary process.
--- NOTE | 2022-01-06 08:58 | XR ---
EXAMINATION TYPE: XR lumbar spine 2 or 3V DATE OF EXAM: 01/06/2022 CLINICAL HISTORY: Low back pain. TECHNIQUE: Frontal and lateral images of the lumbar spine are obtained. COMPARISON: None. FINDINGS: There are 5 lumbar type vertebral bodies identified. There is levoconvex scoliosis centere d at L4 level. Vertebral body heights are maintained. Mild disc space narrowing with mild to moderate anterior spurring and vacuum disc phenomenon at L1-L2 level. Mild disc space narrowing with mild to moderate anterior spurring at L2-L3 level. Mild to moderate disc space narrowing and mild to moderate spurring right L4-L5 level. Moderate to severe overlying arterial vascular calcification. IMPRESSION: As above.
[2022-01-06 09:09] LABS: ALT 17 U/L (4-34); African American GFR (CKD) >90 (>60 ml/min/1.73 sqM); Albumin 3.8 g/dL (3.5-5.0); Anion Gap 10 mmol/L; Blood Urea Nitrogen 19 mg/dL (7-17); Carbon Dioxide 23 mmol/L (22-30); Chloride 104 mmol/L (98-107); Glucose 90 mg/dL (74-99); Non-African American GFR(CKD) 88 (>60 ml/min/1.73 sqM); Sodium 137 mmol/L (137-145); Total Bilirubin 0.8 mg/dL (0.2-1.3)
[2022-01-06 09:10] LABS: AST 28 U/L (14-36); Alkaline Phosphatase 61 U/L (38-126); Magnesium 1.6 mg/dL (1.6-2.3); Potassium 3.8 mmol/L (3.5-5.1)
[2022-01-06 09:16] LABS: Partial Thromboplastin Time 23.4 sec (22.0-30.0); Prothrombin Time 10.4 sec (9.0-12.0)
--- NOTE | 2022-01-06 09:56 | CT ---
EXAMINATION TYPE: CT chest angio for PE DATE OF EXAM: 01/06/2022 COMPARISON: Chest x-ray earlier today HISTORY: Back pain, elevated d-dimer CT DLP: 194.5 mGycm. Automated Exposure Control for Dose Reduction was Utilized. CONTRAST: CTA scan of the thorax is performed with IV Contrast, patient injected with 100, wasted 26 ml mL of I sovue 370, pulmonary embolism protocol. MIP Images are created on CT scanner and reviewed. FINDINGS: LUNGS: Patient unable to hold breath causing respiratory motion compromises making evaluation subopti mal particularly for subcentimeter nodules. Some dependent atelectasis is seen. No suspicious focal c onsolidation. No pleural effusion or pneumothorax. MEDIASTINUM: There is satisfactory enhancement of the pulmonary artery and its branches, there is no CT evidence for pulmonary embolism. Prominent pulmonary arteries raises concern for underlying pulmo nary hypertension. There are no greater than 1 cm hilar or mediastinal lymph nodes. Heart size upper limits of normal. No pericardial effusion is evident. Coronary artery calcification is seen. Satisfac tory enhancement of the thoracic aorta with ectatic course. No aneurysm. No dissection. Prominent noe cified plaque at origin of the celiac artery. There is prominent azygos and hemiazygos vein. There is nonvisualized IVC.. OTHER: Cholecystectomy clip. S-shaped scoliosis is present. IMPRESSION: No CT evidence for acute pulmonary embolism. No suspicious acute pulmonary process. 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
[2022-01-06] MEDS ORDERED: NITROGLYCERIN SL TABS 0.4 MG TAB SUBLINGUAL PRN (10:17)
[2022-01-06] MEDS ORDERED: ASPIRIN 81 MG PO STA (10:17)
[2022-01-06] MEDS ORDERED: HYDROcodone/APAP 5-325MG 1 EACH TAB PO PRN (10:19)
[2022-01-07 05:21] VITALS: TEMP 97.3
[2022-01-07] MEDS ORDERED: PANTOPRAZOLE 40 MG TABLET PO SCH (07:30)
[2022-01-07 07:46] VITALS: PULSE 66
--- NOTE | 2022-01-07 07:55 | P.HPIM ---
History of Present Illness H&P Date: 01/06/22 Chief Complaint: chest and back pain 86-year-old female with history of hypertension presents emergency Department chief complaint chest pain, back pain. She told me that she has been falling also possible weeks. She fell twice at least. He thinks that she simply tripped. She is not sure however if she lost consciousness. Over the past couple of weeks she has been having intermittent back and chest pain. Pain in the back is worse with movement. Chest pain is located in the back between shoulder blades. Denied having any focal weakness or numbness. No significant shortness of breath, dizziness, nausea or vomiting, fevers or chills. Denies any bowel, bladder incontinence or retention or saddle anesthesia. Evaluation in the emergency department revealed normal vital signs. Troponin was negative. EKG did not show any signs of ischemia. Chest x-ray and CT angiogram of the chest was negative for PE or any other acute cardiopulmonary process. Patient was admitted for further evaluation and management. Review of Systems Complete review of system performed, pertinent positives per HPI, otherwise negative Past Medical History Past Medical History: CVA/TIA, Hyperlipidemia, Hypertension Additional Past Medical History / Comment(s): TIA History of Any Multi-Drug Resistant Organisms: None Reported Past Surgical History: Hernia Repair Additional Past Surgical History / Comment(s): Julian fundoplication Past Anesthesia/Blood Transfusion Reactions: No Reported Reaction Past Psychological History: No Psychological Hx Reported Smoking Status: Never smoker Past Alcohol Use History: None Reported Past Drug Use History: None Reported - Past Family History Father Family Medical History: No Reported History Additional Family Medical History / Comment(s): Father was healthy Mother Family Medical History: No Reported History Additional Family Medical History / Comment(s): Mother was healthy Medications and Allergies Home Medications Medication Instructions Recorded Confirmed Type Atorvastatin [Lipitor] 40 mg PO DAILY 04/11/19 01/06/22 History Clopidogrel [Plavix] 75 mg PO DAILY 04/11/19 01/06/22 History Losartan Potassium 50 mg PO DAILY 01/06/22 01/06/22 History hydroCHLOROthiazide 12.5 mg PO DAILY 01/06/22 01/06/22 History Allergies Allergy/AdvReac Type Severity Reaction Status Date / Time No Known Allergies Allergy Verified 01/06/22 11:06 Physical Exam Vitals: Vital Signs Temp Pulse Pulse Resp BP BP Pulse Ox 01/07/22 07:45 66 15 133/77 97 01/07/22 05:20 97.3 F L 86 16 147/89 95 01/06/22 22:00 66 18 144/88 97 01/06/22 11:07 65 20 138/77 97 01/06/22 07:56 97.5 F L 74 20 132/78 98 Intake and Output 01/06/22 01/07/22 01/07/22 22:59 06:59 14:59 Other: # Voids 1 Constitutional: No acute distress, conversant, pleasant Eyes:Anicteric sclerae, moist conjunctiva, no lid-lag, PERRLA, ENMT: Oropharynx clear, no erythema, exudates Neck: Supple, FROM, no masses, or JVD, No carotid bruits, No thyromegaly Lungs: Clear to auscultation, Clear to percussion, Normal respiratory effort, no accessory muscle use Cardiovascular: Heart regular in rate and rhythm, No murmurs, gallops, or rubs, No peripheral edema Abdominal: Soft, Nontender, no guarding, rebound or rigidity, Normoactive bowel sounds, No hepatomegaly, No splenomegaly, No palpable mass Skin: Normal temperature, tone, texture, turgor, no induration, No subcutaneous nodules, No rash, lesions, No ulcers Extremities: No digital cyanosis, No clubbing, Pedal pulses intact and symmetrical, Radial pulses intact and symmetrical, No calf tenderness Psychiatric: Alert and oriented to person, place and time, appropriate affect, intact judgement Neuro: Muscles Strength 5/5 in all 4 extremities, Sensation to light touch grossly present throughout, Cranial nerves II-XII grossly intact, no focal sensory deficits Results CBC & Chem 7: 01/06/22 08:27 01/06/22 08:27 Labs: Abnormal Lab Results - Last 24 Hours (Table) 01/06/22 01/06/22 01/06/22 Range/Units 08:27 08:27 08:27 Lymphocytes # 0.8 L (1.0-4.8) k/uL D-Dimer 0.64 H (<0.60) mg/L FEU BUN 19 H (7-17) mg/dL Total Protein 6.0 L (6.3-8.2) g/dL Assessment and Plan Plan: Acute chest pain Cardiology evaluation Cycle troponins Telemetry monitoring Acute back pain X-ray of the back revealed scoliosis and some degenerative changes Conservative management with pain meds Essential hypertension Stable Resume meds Admit to observation
[2022-01-07] MEDS ORDERED: ASPIRIN 325 MG TAB PO SCH (09:00)
[2022-01-07] MEDS ORDERED: ATORVASTATIN 40 MG TAB PO SCH (09:00)
[2022-01-07] MEDS ORDERED: LOSARTAN 50 MG TAB PO SCH (09:00)
[2022-01-07] MEDS ORDERED: CLOPIDOGREL 75 MG TAB PO SCH (09:00)
[2022-01-07] MEDS ORDERED: hydroCHLOROthiazide 12.5 MG CAP PO SCH (09:00)
[2022-01-07] MEDS ORDERED: ASPIRIN 81 MG PO SCH (09:00)
--- NOTE | 2022-01-07 09:09 | P.CRDCN ---
History of Present Illness History of present illness: This is a pleasant 86-year-old female past medical history significant for hypertension, dyslipidemia, TIA. 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 PCP is Dr. Olmstead. We have been asked to see in consultation for chest pain. Patient presents to the emergency department with complaints of back pain. Patient denies any chest pain at bedside. She has been having bilateral upper back pain and lower back pain for a few weeks. She states it comes and goes and is aggravated by movement of her back. She denies any chest pain, shortness of breath, nausea, vomiting, diaphoresis, lightheadedness, dizziness, syncope or near syncope. Denies any bladder or bowel incontinence. She denies any history of CAD, ME, Diabetes. DIAGNOSTICS * EKG reveals sinus rhythm, heart rate 75, nonspecific STT wave abnormalities., Low voltage QRS in precordial leads noted. Prior EKG in 2019 with similar findings * CTA- no evidence of pulmonary embolism, coronary artery calcification seen. No dissection. no acute pulmonary process * Lumbar spine xray- Levoconvex scoliosis centered at L4 level, mild disc space narrowing with mild to moderate anterior spurring and vacuum disc phenomenon at L1-L2 level. Mild to moderate anterior spurring and mild disc space narrowing at L2-L3 level and at L4-L5 level. Moderate to severe overlying arterial vascular calcification reported. * Telemetry tracings at bedside reveal sinus rhythm * Chest xray no acute cardiopulmonary process. * Laboratory reviewed, troponin negative 3, d-dimer 0.64, CBC unremarkable, sodium 137, potassium 3.8, BUN 19, serum creatinine 0.5, magnesium 1.6, Pro- BNP 163 * Current home medications include losartan 50 mg daily, Plavix 75 mg daily, atorvastatin 40 mg daily, hydrochlorothiazide 12.5 mg daily REVIEW OF SYSTEMS At the time of my exam: CONSTITUTIONAL: Denies fever or chills. CARDIOVASCULAR: Denies chest pain, shortness of breath, orthopnea, PND or palpitations. RESPIRATORY: Denies cough. GASTROINTESTINAL: Denies abdominal pain, diarrhea, constipation, nausea or vomiting. MUSCULOSKELETAL: +upper shoulder blade pain bilaterally and bilateral lower back pain NEUROLOGIC: Denies numbness, tingling, headache or weakness. ENDOCRINE: Denies fatigue, weight change, polydipsia or polyurina. GENITOURINARY: Denies burning, hematuria or urgency with micturation. HEMATOLOGIC: Denies history of anemia or bleeding. PHYSICAL EXAMINATION Vital reviewed CONSTITUTIONAL: No apparent distress. HEENT: Head is normocephalic. Pupils are equal, round. Sclerae anicteric. Mucous membranes of the mouth are moist. No JVD. No carotid bruit. CHEST EXAMINATION: Lungs are clear to auscultation. No chest wall tenderness is noted on palpation or with deep breathing. HEART EXAMINATION: Regular rate and rhythm. S1, S2 heard. No murmurs, gallops or rub. ABDOMEN: Soft, nontender. Positive bowel sounds. EXTREMITIES: 2+ peripheral pulses, no lower extremity edema and no calf tenderness. SKIN: Warm, dry NEUROLOGIC EXAMINATION: Patient is awake, alert and oriented x3. ASSESSMENT Back pain Patient denies any chest pain History of hypertension Dyslipidemia History of TIA PLAN An acute coronary event has been ruled out with no EKG evidence of ischemia and negative cardiac enzymes. Coronary artery disease cannot be excluded. Patient denies chest pain on exam. Rest of management per primary Continue home cardiac medications Stress test can be completed as an outpatient We will follow the patient as needed, Please reach out with any further questions or concerns. Thank you kindly for this consultation. Nurse practitioner note has been reviewed by physician. Signing provider agrees with the documented findings, assessment, and plan of care. Past Medical History Past Medical History: CVA/TIA, Hyperlipidemia, Hypertension Additional Past Medical History / Comment(s): TIA History of Any Multi-Drug Resistant Organisms: None Reported Past Surgical History: Hernia Repair Additional Past Surgical History / Comment(s): Julian fundoplication Past Anesthesia/Blood Transfusion Reactions: No Reported Reaction Past Psychological History: No Psychological Hx Reported Smoking Status: Never smoker Past Alcohol Use History: None Reported Past Drug Use History: None Reported - Past Family History Father Family Medical History: No Reported History Additional Family Medical History / Comment(s): Father was healthy Mother Family Medical History: No Reported History Additional Family Medical History / Comment(s): Mother was healthy Medications and Allergies Home Medications Medication Instructions Recorded Confirmed Type Atorvastatin [Lipitor] 40 mg PO DAILY 04/11/19 01/06/22 History Clopidogrel [Plavix] 75 mg PO DAILY 04/11/19 01/06/22 History Losartan Potassium 50 mg PO DAILY 01/06/22 01/06/22 History hydroCHLOROthiazide 12.5 mg PO DAILY 01/06/22 01/06/22 History Allergies Allergy/AdvReac Type Severity Reaction Status Date / Time No Known Allergies Allergy Verified 01/06/22 11:06 Physical Exam Vitals: Vital Signs Temp Pulse Pulse Resp BP BP Pulse Ox 01/07/22 05:20 97.3 F L 86 16 147/89 95 01/06/22 22:00 66 18 144/88 97 01/06/22 11:07 65 20 138/77 97 01/06/22 07:56 97.5 F L 74 20 132/78 98 Intake and Output 01/06/22 01/07/22 01/07/22 22:59 06:59 14:59 Other: # Voids 1 Results 01/06/22 08:27 01/06/22 08:27 Cardiac Enzymes 01/06/22 01/06/22 01/06/22 Range/Units 08:27 08:27 11:21 AST 28 (14-36) U/L Troponin I <0.012 <0.012 (0.000-0.034) ng/mL 01/06/22 Range/Units 16:45 AST (14-36) U/L Troponin I <0.012 (0.000-0.034) ng/mL Coagulation 01/06/22 Range/Units 08:27 PT 10.4 (9.0-12.0) sec APTT 23.4 (22.0-30.0) sec CBC 01/06/22 Range/Units 08:27 WBC 6.9 (3.8-10.6) k/uL RBC 4.77 (3.80-5.40) m/uL Hgb 14.9 (11.4-16.0) gm/dL Hct 45.3 (34.0-46.0) % Plt Count 203 (150-450) k/uL Comprehensive Metabolic Panel 01/06/22 Range/Units 08:27 Sodium 137 (137-145) mmol/L Potassium 3.8 (3.5-5.1) mmol/L Chloride 104 (98-107) mmol/L Carbon Dioxide 23 (22-30) mmol/L BUN 19 H (7-17) mg/dL Creatinine 0.53 (0.52-1.04) mg/dL Glucose 90 (74-99) mg/dL Calcium 9.0 (8.4-10.2) mg/dL AST 28 (14-36) U/L ALT 17 (4-34) U/L Alkaline Phosphatase 61 (38-126) U/L Total Protein 6.0 L (6.3-8.2) g/dL Albumin 3.8 (3.5-5.0) g/dL Current Medications Generic Name Dose Route Start Last Admin Trade Name Freq PRN Reason Stop Dose Admin Hydrocodone Bitart/Acetaminophen 1 each 01/06/22 10:19 Hydrocodone/Apap 5-325mg 1 Each Tab PO Q6HR PRN Pain Aspirin 325 mg 01/07/22 09:00 Aspirin 325 Mg Tab PO DAILY [facility] Atorvastatin Calcium 40 mg 01/07/22 09:00 Atorvastatin 40 Mg Tab PO DAILY [facility] Clopidogrel Bisulfate 75 mg 01/07/22 09:00 Clopidogrel 75 Mg Tab PO DAILY [facility] Nitroglycerin 0.4 mg 01/06/22 10:17 Nitroglycerin Sl Tabs 0.4 Mg Tab SUBLINGUAL Q5M PRN Chest Pain Pantoprazole Sodium 40 mg 01/07/22 07:30 Pantoprazole 40 Mg Tablet PO AC-[id number] [facility] Intake and Output 01/06/22 01/07/22 01/07/22 22:59 06:59 14:59 Other: # Voids 1 01/06/22 08:27 01/06/22 08:27
[2022-01-07 09:27] LABS: Chol/HDL Ratio 2.94 Ratio; LDL Cholesterol,Calculated 98.2 mg/dL (0.0-131.0)
--- NOTE | 2022-01-07 11:52 | P.DS ---
Providers Date of admission: 01/06/22 10:22 Expected date of discharge: 01/07/22 Attending physician: Jeremias Meier MD Consults: 01/06/22 10:17 Consult Physician Urgent Consulting Provider: Dez Farmer Consult Reason/Comments: chest pain Do you want consulting provider notified?: Yes Primary care physician: Luma Olmstead [facility] Course: 86-year-old female with history of hypertension presents emergency Department chief complaint chest pain, back pain. She told me that she has been falling also possible weeks. She fell twice at least. He thinks that she simply tripped. She is not sure however if she lost consciousness. Over the past couple of weeks she has been having intermittent back and chest pain. Pain in the back is worse with movement. Chest pain is located in the back between shoulder blades. Denied having any focal weakness or numbness. No significant shortness of breath, dizziness, nausea or vomiting, fevers or chills. Denies any bowel, bladder incontinence or retention or saddle anesthesia. Evaluation in the emergency department revealed normal vital signs. Troponin was negative. EKG did not show any signs of ischemia. Chest x-ray and CT angiogram of the chest was negative for PE or any other acute cardiopulmonary process. Patient was admitted for further evaluation and management. Troponin was cycled upon admission, remained negative. Telemetry did not reveal any acute changes. 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 She continues to have some back pain likely due to the fall. The back x-ray was reviewed, revealed some degenerative changes and scoliosis. She was cleared by cardiology for discharge. She will be discharged home in stable condition. Patient Condition at Discharge: Fair Plan - Discharge Summary New Discharge Prescriptions: Continue Clopidogrel [Plavix] 75 mg PO DAILY Atorvastatin [Lipitor] 40 mg PO DAILY hydroCHLOROthiazide 12.5 mg PO DAILY Losartan Potassium 50 mg PO DAILY Discharge Medication List Atorvastatin [Lipitor] 40 mg PO DAILY 04/11/19 [History] Clopidogrel [Plavix] 75 mg PO DAILY 04/11/19 [History] Losartan Potassium 50 mg PO DAILY 01/06/22 [History] hydroCHLOROthiazide 12.5 mg PO DAILY 01/06/22 [History] Follow up Appointment(s)/Referral(s): Luma Olmstead DO [Primary Care Provider] - 1-2 days
[2022-01-07 12:13] VITALS: RESP 16
[2022-01-07 13:11] VITALS: BP 134/86
== END 2022-01-07 13:11 | disposition home or self-care (01) ==
LOC: EC 07:44 → 6NMEDSUR 10:22
PROVIDERS: ADMIT Internal Medicine; ATTEND Internal Medicine
DX: R07.89 Other chest pain (principal); I10 Essential (primary) hypertension; E78.5 Hyperlipidemia, unspecified; M41.9 Scoliosis, unspecified; I70.0 Atherosclerosis of aorta; J98.11 Atelectasis; I25.10 Atherosclerotic heart disease of native coronary artery without angina pectoris; M48.061 Spinal stenosis, lumbar region without neurogenic claudication; Z86.73 Personal history of transient ischemic attack (TIA), and cerebral infarction without residual deficits; Z79.899 Other long term (current) drug therapy; Z79.02 Long term (current) use of antithrombotics/antiplatelets; Z90.49 Acquired absence of other specified parts of digestive tract
CPT/HCPCS: 96374; 99285; 36415; 93005; 85379; 83880; 80061; 80053; 83735; 84484; 85025; 85610; 85730; 72100; 71046; 71275; G0378 ×2; J1885; Q9967